=== PATIENT | female | born 1950 | race Caucasian/White ===

== ENCOUNTER 2016-10-06 10:51 | Observation (INO) | payer MEDICARE, OTHER ==
[2016-10-06] MEDS ORDERED: ASPIRIN 81 MG TABLET, CHEWABLE PO ONE (10:55)
[2016-10-06] MEDS ORDERED: NORMAL SALINE 1000 ML 1,000 ML IV ONE (12:32)
[2016-10-06 12:41] LABS: ABSOLUTE EOSINOPHILS # (AUTO) 0.1 10^3/uL (0.0-0.6); ABSOLUTE LYMPHOCYTES (AUTO) 3.4 10^3/uL (0.5-4.7); ABSOLUTE MONOCYTES (AUTO) 0.2 10^3/uL (0.1-1.4); ABSOLUTE NEUT (AUTO) 1.7 10^3/uL (1.7-8.2); BASOPHILS % (AUTO) 0.8 % (0-2); HEMATOCRIT 40.5 % (36.0-47.0); HEMOGLOBIN 13.6 g/dL (12.0-15.5); HGB HCT DIFFERENCE 0.3; LYMPHOCYTES % (AUTO) 62.5 % (13-45); MEAN CORPUSCULAR HEMOGLOBIN 28.4 pg (27.0-33.4); MEAN CORPUSCULAR HGB CONC 33.5 g/dL (32.0-36.0); MEAN CORPUSCULAR VOLUME 85 fl (80-97); MONOCYTES % (AUTO) 3.4 % (3-13); RED BLOOD COUNT 4.78 10^6/uL (3.72-5.28); RED CELL DISTRIBUTION WIDTH 13.4 % (11.5-14.0); SEGMENTED NEUTROPHILS % (AUTO) 31.3 % (42-78); WHITE BLOOD COUNT 5.4 10^3/uL (4.0-10.5)
[2016-10-06 12:47] LABS: PROTHROMBIN TIME 13.2 SEC (11.4-15.4)
[2016-10-06 12:58] LABS: ALANINE AMINOTRANSFERASE 59 U/L (9-52); ALBUMIN 3.8 g/dL (3.5-5.0); ALKALINE PHOSPHATASE 84 U/L (38-126); ANION GAP 14 (5-19); ASPARTATE AMINO TRANSFERASE 51 U/L (14-36); BILIRUBIN,DIRECT 0.3 mg/dL (0.0-0.4); BILIRUBIN,TOTAL 0.9 mg/dL (0.2-1.3); BLOOD UREA NITROGEN 11 mg/dL (7-20); CALCIUM 9.5 mg/dL (8.4-10.2); CARBON DIOXIDE 25 mmol/L (22-30); CHLORIDE 104 mmol/L (98-107); CREATINE KINASE 42 U/L (30-135); CREATININE RESULT 0.72 mg/dL (0.52-1.25); GLUCOSE 117 mg/dL (75-110); LIPASE 217.8 U/L (23-300); POTASSIUM 3.8 mmol/L (3.6-5.0); SODIUM 142.5 mmol/L (137-145); TOTAL PROTEIN 6.4 g/dL (6.3-8.2)
--- NOTE | 2016-10-06 13:15 | EKG REPORT ---
SEVERITY:- ABNORMAL ECG - SINUS RHYTHM PROBABLE INFERIOR INFARCT, AGE INDETERMINATE ABNRM R PROG, CONSIDER ASMI OR LEAD PLACEMENT : Confirmed by: Rosalba Oleary 06-Oct-2016 13:15:19
[2016-10-06 13:40] LABS: TROPONIN I < 0.012 ng/mL
[2016-10-06] MEDS ORDERED: HYDROCORTISONE SOD SUCCINATE INJ/PF 100 MG/2 ML SDV IV ONE (14:30)
[2016-10-06] MEDS ORDERED: ACETAMINOPHEN 325 MG TABLET PO PRN (14:40)
[2016-10-06] MEDS ORDERED: ZOLPIDEM TARTRATE 5 MG TABLET PO PRN (14:40)
[2016-10-06] MEDS ORDERED: NORMAL SALINE 1000 ML 1,000 ML IV PRN (14:40)
[2016-10-06] MEDS ORDERED: ONDANSETRON HCL INJ/PF 4 MG/2 ML SDV IV PRN (14:40)
[2016-10-06 14:49] LABS: APPEARANCE,URINE CLOUDY; BILIRUBIN,URINE NEGATIVE (NEGATIVE); GLUCOSE, URINE NEGATIVE (NEGATIVE); KETONES,URINE TRACE mg/dL (NEGATIVE); LEUKOCYTE ESTERASE,URINE LARGE (NEGATIVE); NITRITE,URINE NEGATIVE (NEGATIVE); PROTEIN,URINE 30 mg/dL (NEGATIVE); URINE SPECIFIC GRAVITY 1.017; UROBILINOGEN,URINE NEGATIVE mg/dL (<2.0)
--- NOTE | 2016-10-06 14:54 | ER Document Report ---
ED General - General Chief Complaint: Syncope Stated Complaint: POSSIBLE SYNCOPE Time Seen by Provider: 10/06/16 10:55 - HPI Patient complains to provider of: syncope Notes: Ration has a history of adrenal failure she had her adrenal gland removed due to tumors coming in today for evaluation of syncope. Patient states she is taking her medication as prescribed recently moved from [place] to the [place] area was working at the local [employer] when she had a syncopal episode lasting for proximal a 5 minutes. Upon EMS arrival patient was found hypotensive and hypoxic. Patient upon arrival has no complaints. Patient has no complaints of pain denies fevers chills nausea vomiting had pain abdominal pain chest pain - Related Data Allergies/Adverse Reactions: No Known Allergies Allergy (Verified 10/06/16 11:15) Past Medical History - Social History Smoking Status: Never Smoker Frequency of alcohol use: Occasional Drug Abuse: None Family History: Reviewed & Not Pertinent Renal/ Medical History: Denies: Hx Peritoneal Dialysis Review of Systems - Review of Systems Constitutional: No symptoms reported EENT: No symptoms reported Cardiovascular: Syncope Respiratory: No symptoms reported Gastrointestinal: No symptoms reported Genitourinary: No symptoms reported Female Genitourinary: No symptoms reported Musculoskeletal: No symptoms reported Skin: No symptoms reported Hematologic/Lymphatic: No symptoms reported Neurological/Psychological: No symptoms reported -: Yes All other systems reviewed and negative Physical Exam - Vital signs Vitals: Temp Pulse Resp BP Pulse Ox 98.5 F 95 19 103/60 95 10/06/16 10:51 10/06/16 10:51 10/06/16 10:51 10/06/16 10:51 10/06/16 10:51 Interpretation: Normal - General General appearance: Appears well, Alert - HEENT Head: Normocephalic, Atraumatic Eyes: Normal Pupils: PERRL - Respiratory Respiratory status: No respiratory distress Chest status: Nontender Breath sounds: Normal Chest palpation: Normal - Cardiovascular Rhythm: Regular Heart sounds: Normal auscultation Murmur: No - Abdominal Inspection: Normal Distension: No distension Bowel sounds: Normal Tenderness: Nontender Organomegaly: No organomegaly - Back Back: Normal, Nontender - Extremities General upper extremity: Normal inspection, Nontender, Normal color, Normal ROM , Normal temperature General lower extremity: Normal inspection, Nontender, Normal color, Normal ROM , Normal temperature, Normal weight bearing. No: Simi's sign - Neurological Neuro grossly intact: Yes Cognition: Normal Orientation: AAOx4 [place] Coma Scale Eye Opening: Spontaneous [place] Coma Scale Verbal: Oriented [place] Coma Scale Motor: Obeys Commands [place] Coma Scale Total: 15 Speech: Normal Motor strength normal: LUE, RUE, LLE, RLE Sensory: Normal - Psychological Associated symptoms: Normal affect, Normal mood - Skin Skin Temperature: Warm Skin Moisture: Dry Skin Color: Normal Course - Re-evaluation Re-evalutation: 10/06/16 15:14 Patient's her stats were positive. Patient was given a liter fluid and continued to be orthostatic. Discussed with hospitalist agrees with giving the patient 100 mg of Solu-Cortef. Patient will be admitted to the hospital service for further evaluation - Vital Signs Vital signs: Temp Pulse Resp BP Pulse Ox 98.5 F 109 H 18 90/52 L 99 10/06/16 10:51 10/06/16 14:28 10/06/16 12:00 10/06/16 14:28 10/06/16 12:22 - Laboratory Result Diagrams: 10/06/16 12:23 10/06/16 12:23 Laboratory results interpreted by me: 10/06/16 10/06/16 10/06/16 12:23 12:23 14:20 Seg Neutrophils % 31.3 L Lymphocytes % 62.5 H Glucose 117 H AST 51 H ALT 59 H Urine Protein 30 H Urine Ketones TRACE H Ur Leukocyte Esterase LARGE H Urine Ascorbic Acid 20 H Discharge - Discharge Clinical Impression: Adrenal failure, Orthostatic hypotension Syncope Qualifiers: Syncope type: unspecified Qualified Code(s): R55 - Syncope and collapse Condition: Good Disposition: ADMITTED OBSERVATION Admitting Provider: Hospitalist - [facility] Unit Admitted: Telemetry
[2016-10-06 14:55] LABS: URINE BARBITURATES SCREEN NEGATIVE; URINE METHADONE SCREEN NEGATIVE; URINE OPIATES LOW NEGATIVE; URINE PHENCYCLIDINE SCREEN NEGATIVE
--- NOTE | 2016-10-06 16:01 | PDOC H&P ---
History of Present Illness Patient complains of: Syncopal episode History of Present Illness: ELLEN VENCES is a 66 year old female who has past medical history of pituitary adenoma resection, bilateral adrenalectomies and hypothyroidism; presents to the ER after syncopal episode at work. Patient is employed at [employer] and she was noted by coworkers to collapse to the floor. Coworkers state she was without consciousness for approximately 5 minutes. They deny any seizure-like activity, or loss of bowel or bladder function. Patient denies any head trauma. She was noted to have orthostatic hypotension with orthostatic vital signs. She was given 2 L of IV normal saline by your provider. She was then given 100 mg hydrocortisone. She denies any complaints at the present time. Past Medical History Cardiac Medical History: Reports: None, Other - prior episodes of syncope Pulmonary Medical History: Reports: None EENT Medical History: Reports: None Neurological Medical History: Reports: None Endocrine Medical History: Reports: None Renal/ Medical History: Reports: None GI Medical History: Reports: None Musculoskeltal Medical History: Reports: None Psychiatric Medical History: Reports: None Traumatic Medical History: Reports: None Hematology: Reports: None Infectious Medical History: Reports: None Past Surgical History Past Surgical History: Reports: Other - bilateral adrenalectomy, transsphenoid pitutary gland removal approximately Social History Information Source: Patient Lives with: Family Smoking Status: Never Smoker Frequency of Alcohol Use: Rare Hx Recreational Drug Use: No Drugs: Cocaine - Advance Directive Resuscitation Status: Full Code Surrogate healthcare decision maker:: Son Family History Family History: Hyperlipidemia, Hypertension Parental Family History Reviewed: Yes Children Family History Reviewed: Yes Sibling(s) Family History Reviewed.: Yes Medication/Allergy Home Medications: Fludrocortisone Acetate [Florinef 0.1 mg Tablet] 0.25 mg PO DAILY 10/06/16 Hydrocortisone [Cortef 10 Mg Tablet] 10 mg PO BIDBL 10/06/16 Levothyroxine Sodium [Synthroid 0.1 mg Tablet] 0.1 mg PO DAILY 10/06/16 Allergies/Adverse Reactions: No Known Allergies Allergy (Verified 10/06/16 11:15) Review of Systems Constitutional: ABSENT: chills, fever(s), headache(s), weight gain, weight loss Eyes: ABSENT: visual disturbances Ears: ABSENT: hearing changes Cardiovascular: ABSENT: chest pain, dyspnea on exertion, edema, orthropnea, palpitations Respiratory: ABSENT: cough, hemoptysis Gastrointestinal: ABSENT: abdominal pain, constipation, diarrhea, hematemesis, hematochezia, nausea, vomiting Genitourinary: ABSENT: dysuria, hematuria Musculoskeletal: ABSENT: joint swelling Integumentary: ABSENT: rash, wounds Neurological: PRESENT: syncope Psychiatric: ABSENT: anxiety, depression, homidical ideation, suicidal ideation Endocrine: ABSENT: cold intolerance, heat intolerance, polydipsia, polyuria Hematologic/Lymphatic: ABSENT: easy bleeding, easy bruising Physical Exam Vital Signs: Temp Pulse Resp BP Pulse Ox 98.5 F 109 H 34 H 98/66 L 100 10/06/16 10:51 10/06/16 14:28 10/06/16 15:07 10/06/16 15:07 10/06/16 15:07 Intake & Output 10/05/16 10/06/16 10/07/16 06:59 06:59 06:59 Weight 68.039 kg General appearance: PRESENT: no acute distress, well-developed, well-nourished Head exam: PRESENT: atraumatic, normocephalic Eye exam: PRESENT: conjunctiva pink, EOMI, PERRLA. ABSENT: scleral icterus Ear exam: PRESENT: normal external ear exam Mouth exam: PRESENT: moist, tongue midline Neck exam: ABSENT: carotid bruit, JVD, lymphadenopathy, thyromegaly Respiratory exam: PRESENT: clear to auscultation evelio. ABSENT: rales, rhonchi, wheezes Cardiovascular exam: PRESENT: RRR. ABSENT: diastolic murmur, rubs, systolic murmur Pulses: PRESENT: normal dorsalis pedis pul Vascular exam: PRESENT: normal capillary refill GI/Abdominal exam: PRESENT: normal bowel sounds, soft. ABSENT: distended, guarding, mass, organolmegaly, rebound, tenderness Rectal exam: PRESENT: deferred Extremities exam: PRESENT: full ROM. ABSENT: calf tenderness, clubbing, pedal edema Neurological exam: PRESENT: alert, awake, oriented to person, oriented to place , oriented to time, oriented to situation, CN II-XII grossly intact. ABSENT: motor sensory deficit Psychiatric exam: PRESENT: appropriate affect, normal mood. ABSENT: homicidal ideation, suicidal ideation Skin exam: PRESENT: dry, intact, warm. ABSENT: cyanosis, rash Results Laboratory Results: 10/06/16 12:23 10/06/16 12:23 10/06/16 10/06/16 10/06/16 12:23 12:23 14:20 WBC 5.4 RBC 4.78 Hgb 13.6 Hct 40.5 MCV 85 MCH 28.4 MCHC 33.5 RDW 13.4 Plt Count 165 Seg Neutrophils % 31.3 L Lymphocytes % 62.5 H Monocytes % 3.4 Eosinophils % 2.0 Basophils % 0.8 Absolute Neutrophils 1.7 Absolute Lymphocytes 3.4 Absolute Monocytes 0.2 Absolute Eosinophils 0.1 Absolute Basophils 0.0 Sodium 142.5 Potassium 3.8 Chloride 104 Carbon Dioxide 25 Anion Gap 14 BUN 11 Creatinine 0.72 Est GFR ( Amer) > 60 Est GFR (Non-Af Amer) > 60 Glucose 117 H Calcium 9.5 Total Bilirubin 0.9 AST 51 H ALT 59 H Alkaline Phosphatase 84 Total Protein 6.4 Albumin 3.8 Lipase 217.8 Urine Color YELLOW Urine Appearance CLOUDY Urine pH 5.0 Ur Specific [place] 1.017 Urine Protein 30 H Urine Glucose (UA) NEGATIVE Urine Ketones TRACE H Urine Blood NEGATIVE Urine Nitrite NEGATIVE Ur Leukocyte Esterase LARGE H Urine WBC (Auto) 28 Urine RBC (Auto) 4 10/06/16 10/06/16 10/06/16 12:23 12:23 13:06 Creatine Kinase 42 CK-MB (CK-2) Cancelled 0.50 Troponin I Cancelled < 0.012 Impressions: Chest X-Ray 10/06/16 10:55 IMPRESSION: NO ACUTE RADIOGRAPHIC FINDING IN THE CHEST. Head CT 10/06/16 11:10 IMPRESSION: MILD CHRONIC CHANGES OF ATROPHY AND MICROVASCULAR ISCHEMIA. NO ACUTE PROCESS. Assessment & Plan - Diagnosis (1) Syncope Qualifiers: Syncope type: unspecified Qualified Code(s): R55 - Syncope and collapse Is this a current diagnosis for this admission?: YesPlan: Most likely related to adrenal insufficiency. Patient was given IV hydrocortisone 100 mg 1 we'll continue with hydrocortisone 50 mg every 8 hours. Check random cortisol level (2) Adrenal failure Is this a current diagnosis for this admission?: YesPlan: Patient with history of bilateral adrenalectomies 20-30 years ago on hydrocortisone therapy daily (3) Orthostatic hypotension Is this a current diagnosis for this admission?: YesPlan: Patient was given IV hydration by the emergency room provider she does not appear dehydrated. We will give IV hydrocortisone (4) Hypothyroidism (acquired) Is this a current diagnosis for this admission?: YesPlan: Continue Synthroid - Time Time Spent: 50 to 70 Minutes Critical Time spent with patient: 25-34 minutes Medications reviewed and adjusted accordingly: Yes Anticipated discharge: Home Within: within 24 hours
[2016-10-06] MEDS: HYDROCORTISONE SOD SUCCINATE INJ/PF 100 MG/2 ML SDV IV SCH (21:39)
[2016-10-06] MEDS: HEPARIN SOD (PORCINE) 5,000 UNIT/ML 1 ML SYRINGE SUBCUT SCH (21:39)
[2016-10-06] MEDS ORDERED: TRAZODONE HCL 50 MG TABLET PO SCH (22:00)
[2016-10-07] MEDS: HEPARIN SOD (PORCINE) 5,000 UNIT/ML 1 ML SYRINGE SUBCUT SCH (05:20)
[2016-10-07] MEDS: HYDROCORTISONE SOD SUCCINATE INJ/PF 100 MG/2 ML SDV IV SCH (05:20)
[2016-10-07 06:12] LABS: ABSOLUTE BASOPHILS # (AUTO) 0.1 10^3/uL (0.0-0.2); ABSOLUTE EOSINOPHILS # (AUTO) 0.2 10^3/uL (0.0-0.6); ABSOLUTE LYMPHOCYTES (AUTO) 1.3 10^3/uL (0.5-4.7); ABSOLUTE MONOCYTES (AUTO) 0.9 10^3/uL (0.1-1.4); ABSOLUTE NEUT (AUTO) 16.3 10^3/uL (1.7-8.2); BASOPHILS % (AUTO) 0.4 % (0-2); EOSINOPHILS % (AUTO) 1.3 % (0-6); HEMATOCRIT 38.1 % (36.0-47.0); HEMOGLOBIN 12.7 g/dL (12.0-15.5); LYMPHOCYTES % (AUTO) 7.1 % (13-45); MEAN CORPUSCULAR HEMOGLOBIN 28.2 pg (27.0-33.4); MEAN CORPUSCULAR HGB CONC 33.4 g/dL (32.0-36.0); MEAN CORPUSCULAR VOLUME 85 fl (80-97); MONOCYTES % (AUTO) 4.8 % (3-13); RED BLOOD COUNT 4.51 10^6/uL (3.72-5.28); RED CELL DISTRIBUTION WIDTH 13.3 % (11.5-14.0); SEGMENTED NEUTROPHILS % (AUTO) 86.4 % (42-78)
[2016-10-07 06:26] LABS: WHITE BLOOD COUNT 18.9 10^3/uL (4.0-10.5)
[2016-10-07 06:35] LABS: ALANINE AMINOTRANSFERASE 81 U/L (9-52); ALBUMIN 2.8 g/dL (3.5-5.0); ALKALINE PHOSPHATASE 69 U/L (38-126); ANION GAP 7 (5-19); ASPARTATE AMINO TRANSFERASE 54 U/L (14-36); BILIRUBIN,DIRECT 0.5 mg/dL (0.0-0.4); BILIRUBIN,TOTAL 0.9 mg/dL (0.2-1.3); BLOOD UREA NITROGEN 10 mg/dL (7-20); CALCIUM 8.5 mg/dL (8.4-10.2); CARBON DIOXIDE 23 mmol/L (22-30); CHLORIDE 109 mmol/L (98-107); CREATININE RESULT 0.73 mg/dL (0.52-1.25); GLUCOSE 102 mg/dL (75-110); POTASSIUM 4.5 mmol/L (3.6-5.0); SODIUM 139.3 mmol/L (137-145); TOTAL PROTEIN 5.2 g/dL (6.3-8.2)
[2016-10-07] MEDS ORDERED: HYDROCORTISONE 10 MG TABLET PO SCH (08:00)
[2016-10-07 08:58] VITALS: BP 105/57
[2016-10-07] MEDS ORDERED: CIPROFLOXACIN HCL 500 MG TABLET PO SCH (10:00)
[2016-10-07] MEDS ORDERED: FLUDROCORTISONE ACETATE 0.1 MG TABLET PO SCH (10:00)
[2016-10-07] MEDS ORDERED: LEVOTHYROXINE SODIUM 0.1 MG TABLET PO SCH (10:00)
--- NOTE | 2016-10-07 12:09 | PDOC DISCHARGE SUMMARY ---
General - Admit/Disc Date/PCP Admission Date/Primary Care Provider: 10/06/16 14:40 Discharge Date: 10/07/16 - Discharge Diagnosis (1) Syncope Is this a current diagnosis for this admission?: YesSummary: Patient had syncopal episode at work. Most likely secondary to adrenal insufficiency (2) Adrenal failure Is this a current diagnosis for this admission?: YesSummary: Patient had adrenalectomy 20 plus years ago. She takes hydrocortisone daily. She states she is extremely sensitive to lack of salt and water in his diet. (3) Orthostatic hypotension Is this a current diagnosis for this admission?: YesSummary: Resolved (4) Hypothyroidism (acquired) Is this a current diagnosis for this admission?: YesSummary: Continue synthroid - Additional Information Resuscitation Status: Full Code Discharge Activity: Activity As Tolerated Home Medications: Ascorbic Acid [Vitamin C] 1 tab PO DAILY 10/06/16 Fludrocortisone Acetate [Florinef 0.1 mg Tablet] 0.25 mg PO DAILY 10/06/16 Hydrocortisone [Cortef 10 mg Tablet] 10 mg PO BIDBL 10/06/16 Levothyroxine Sodium [Synthroid 0.1 mg Tablet] 0.1 mg PO DAILY 10/06/16 Acetaminophen [Tylenol 325 mg Tablet] 650 mg PO Q4HP PRN tablet 10/07/16 Ciprofloxacin HCl [Cipro 500 mg Tablet] 500 mg PO Q12 #10 tablet 10/07/16 History of Present Illness Patient complains of: Syncopal episode History of Present Illness: ELLEN VENCES is a 66 year old female who has past medical history of pituitary adenoma resection, bilateral adrenalectomies and hypothyroidism; presents to the ER after syncopal episode at work. Patient is employed at [employer] and she was noted by coworkers to collapse to the floor. Coworkers state she was without consciousness for approximately 5 minutes. They deny any seizure-like activity, or loss of bowel or bladder function. Patient denies any head trauma. She was noted to have orthostatic hypotension with orthostatic vital signs. She was given 2 L of IV normal saline by your provider. She was then given 100 mg hydrocortisone. She denies any complaints at the present time. Hospital Course Hospital Course: Patient was admitted to telemetry. She was monitored overnight. She had orthostatic vital signs done every 4 hours. She had no further episodes of hypotension. She was given IV hydrocortisone 50 mg every 8 hours. She was noted to have large amount of leukocytes on her urinalysis. She is started on ciprofloxacin and urine culture was obtained. This morning she feels well she. She felt like to go home and we agree that we'll be safe for her. She can return to work on Saturday. She will follow-up with her primary care provider as needed. Physical Exam Vital Signs: Temp Pulse Resp BP Pulse Ox 98.3 F 89 18 105/57 L 98 10/07/16 08:54 10/07/16 08:54 10/07/16 08:54 10/07/16 08:54 10/07/16 08:54 Intake & Output 10/06/16 10/07/16 10/08/16 06:59 06:59 06:59 Intake Total 1438 Output Total 700 Balance 738 Weight 70.7 kg General appearance: PRESENT: no acute distress, well-developed, well-nourished Head exam: PRESENT: atraumatic, normocephalic Eye exam: PRESENT: conjunctiva pink, EOMI, PERRLA. ABSENT: scleral icterus Ear exam: PRESENT: normal external ear exam Mouth exam: PRESENT: moist, tongue midline Neck exam: ABSENT: carotid bruit, JVD, lymphadenopathy, thyromegaly Respiratory exam: PRESENT: clear to auscultation evelio. ABSENT: rales, rhonchi, wheezes Cardiovascular exam: PRESENT: RRR. ABSENT: diastolic murmur, rubs, systolic murmur Pulses: PRESENT: normal dorsalis pedis pul GI/Abdominal exam: PRESENT: normal bowel sounds, soft. ABSENT: distended, guarding, mass, organolmegaly, rebound, tenderness Rectal exam: PRESENT: deferred Extremities exam: PRESENT: full ROM. ABSENT: calf tenderness, clubbing, pedal edema Neurological exam: PRESENT: alert, awake, oriented to person, oriented to place , oriented to time, oriented to situation, CN II-XII grossly intact. ABSENT: motor sensory deficit Psychiatric exam: PRESENT: appropriate affect, normal mood. ABSENT: homicidal ideation, suicidal ideation Skin exam: PRESENT: dry, intact, warm. ABSENT: cyanosis, rash Results Laboratory Results: 10/07/16 05:16 10/07/16 05:16 10/07/16 10/07/16 05:16 05:16 WBC 18.9 H D RBC 4.51 Hgb 12.7 Hct 38.1 MCV 85 MCH 28.2 MCHC 33.4 RDW 13.3 Plt Count 218 Seg Neutrophils % 86.4 H Lymphocytes % 7.1 L Monocytes % 4.8 Eosinophils % 1.3 Basophils % 0.4 Absolute Neutrophils 16.3 H Absolute Lymphocytes 1.3 Absolute Monocytes 0.9 Absolute Eosinophils 0.2 Absolute Basophils 0.1 Sodium 139.3 Potassium 4.5 Chloride 109 H Carbon Dioxide 23 Anion Gap 7 BUN 10 Creatinine 0.73 Est GFR ( Amer) > 60 Est GFR (Non-Af Amer) > 60 Glucose 102 Calcium 8.5 Magnesium 2.0 Total Bilirubin 0.9 AST 54 H ALT 81 H Alkaline Phosphatase 69 Total Protein 5.2 L Albumin 2.8 L Impressions: Chest X-Ray 10/06/16 10:55 IMPRESSION: NO ACUTE RADIOGRAPHIC FINDING IN THE CHEST. Head CT 10/06/16 11:10 IMPRESSION: MILD CHRONIC CHANGES OF ATROPHY AND MICROVASCULAR ISCHEMIA. NO ACUTE PROCESS. Qualifiers PATEINT BEING DISCHARGED WITH ANY OF THE FOLLOWING DIAGNOSIS?: No Plan Discharge Plan: Home with family Time Spent: Less than 30 Minutes
== END 2016-10-07 10:35 | disposition home or self-care (01) ==
LOC: ER 10:51 → EH 14:40 → UNDOADMOB 16:01 → 5 19:45
DX: R55 Syncope and collapse (principal); E27.8 Other specified disorders of adrenal gland; E89.6 Postprocedural adrenocortical (-medullary) hypofunction; I95.1 Orthostatic hypotension; E03.9 Hypothyroidism, unspecified; R82.99 Other abnormal findings in urine; R09.02 Hypoxemia; Z79.52 Long term (current) use of systemic steroids; Z79.899 Other long term (current) drug therapy; Z86.018 Personal history of other benign neoplasm; Z82.49 Family history of ischemic heart disease and other diseases of the circulatory system
CPT/HCPCS: 93005; 99285; 96361; 96374; 36415 ×2; 87086; 82553; 82550; 83690; 83735; 85025 ×2; 85610; 87088; 80053 ×2; 81001; 84484; 87186; 80307; 82533; 71010; 70450; 93010; G0378 ×3; A9270 ×2; J1720 ×2; J7030